=== PATIENT | male | born 1975 ===

== ENCOUNTER 2017-07-04 15:22 | Emergency (ER) | payer SELFPAY ==
[2017-07-04] MEDS ORDERED: NACL 0.9% 1000 ML 1,000 ML IV ONE (16:33)
[2017-07-04 17:22] LABS: Basophils % (Auto) 0.7 % (0.0-1.8); Eosinophils % (Auto) 0.6 % (0.0-4.3); Hematocrit 48.3 % (35.5-45.6); Hemoglobin 16.4 gm/dl (11.8-15.2); Mean Corpuscular HGB Conc 34 % (32-34); Mean Corpuscular Hemoglobin 29 pg (28-32); Mean Corpuscular Volume 87 fl (84-94); Platelet Count 225 K/mm3 (140-440); Red Blood Count 5.58 M/mm3 (3.65-5.03); White Blood Count 9.5 K/mm3 (4.5-11.0)
[2017-07-04 17:39] LABS: Alanine Aminotransferase 46 units/L (7-56); Albumin 4.4 g/dL (3.9-5); Albumin/Globulin Ratio 1.6 %; Alkaline Phosphatase 82 units/L (35-129); Anion Gap 16 mmol/L; BUN/Creatinine Ratio 10; Blood Urea Nitrogen 9 mg/dL (9-20); Calcium 9.2 mg/dL (8.4-10.2); Carbon Dioxide 28 mmol/L (22-30); Chloride 99.3 mmol/L (98-107); Glucose 88 mg/dL (75-100); Lipase 22 units/L (13-60); Potassium 3.4 mmol/L (3.6-5.0); Sodium 140 mmol/L (137-145); Total Protein 7.1 g/dL (6.3-8.2)
[2017-07-04 17:57] LABS: INR 1.03 (0.87-1.13)
[2017-07-04 17:58] LABS: Partial Thromboplastin Time 30.1 Sec. (24.2-36.6)
--- NOTE | 2017-07-04 23:00 | Emergency Department Report ---
HPI - General Chief Complaint: GI Bleed Time Seen by Provider: 07/04/17 22:26 - HPI HPI: Room 18 The patient is a 41-year-old male presented with a chief complaint of abdominal pain. The patient states for the past 2 weeks she has had intermittent left lower quadrant/left flank abdominal discomfort described as tightness in nature. The patient states yesterday he had one episode of dizziness that lasted about 1 minute while walking. Yesterday the patient states he noticed some blood in the stool as well as on the toilet. Patient describes the blood as bright red in nature. Patient states this happened every couple of years but he has never been evaluated for this Location: Abdomen Duration: [See above] Quality: Tightness Severity: Moderate Modifying factors: [see above] Context: [see above] Mode of transportation: Unknown ED Past Medical Hx - Past Medical History Previous Medical History?: Yes Additional medical history: Constipation - Surgical History Past Surgical History?: No - Family History Family history: no significant - Social History Smoking Status: Never Smoker Substance Use Type: None (denies illicit drug use) - Medications Home Medications: Home Medications Medication Instructions Recorded Confirmed Last Taken Type traMADol [Ultram] 50 mg PO Q6HR PRN #10 tablet 07/05/17 Unknown Rx ED Review of Systems ROS: Stated complaint: DIZZINESS/BLOOD IN STOOL Other details as noted in HPI Comment: All other systems reviewed and negative Constitutional: denies: chills, fever Eyes: denies: eye pain, eye discharge, vision change ENT: denies: ear pain, throat pain Respiratory: denies: cough, shortness of breath, wheezing Cardiovascular: denies: chest pain, palpitations Endocrine: no symptoms reported Gastrointestinal: abdominal pain, hematochezia Genitourinary: denies: urgency, dysuria Musculoskeletal: back pain. denies: joint swelling, arthralgia Skin: denies: rash, lesions Neurological: denies: headache, weakness, paresthesias Psychiatric: denies: anxiety, depression Hematological/Lymphatic: denies: easy bleeding, easy bruising Physical Exam - Physical Exam Vital Signs: Vital Signs 07/04/17 07/04/17 16:29 22:27 Temperature 98.8 F 98.1 F Pulse Rate 76 68 Respiratory 20 16 Rate Blood Pressure 149/95 Blood Pressure 148/90 [Left] O2 Sat by Pulse 97 96 Oximetry Physical Exam: GENERAL: The patient is well-developed well-nourished male lying on stretcher not appearing to be in acute distress. [] HEENT: Normocephalic. Atraumatic. Extraocular motions are intact. Patient has moist mucous membranes. NECK: Supple. Trachea midline CHEST/LUNGS: Clear to auscultation. There is no respiratory distress noted. HEART/CARDIOVASCULAR: Regular. There is no tachycardia. There is no gallop rub or murmur. ABDOMEN: Abdomen is soft, nontender. Patient has normal bowel sounds. There is no abdominal distention. SKIN: There is no rash. There is no edema. There is no diaphoresis. NEURO: The patient is awake, alert, and oriented. The patient is cooperative. The patient has normal speech MUSCULOSKELETAL: There is no CVA tenderness. There is no evidence of acute injury. RECTAL: Guaiac negative. No evidence of external or internal hemorrhoids ED Course Vital Signs 07/04/17 07/04/17 16:29 22:27 Temperature 98.8 F 98.1 F Pulse Rate 76 68 Respiratory 20 16 Rate Blood Pressure 149/95 Blood Pressure 148/90 [Left] O2 Sat by Pulse 97 96 Oximetry ED Medical Decision Making - Lab Data Result diagrams: 07/04/17 17:01 07/04/17 17:01 Laboratory Tests 07/04/17 07/04/17 07/04/17 17:01 17:01 17:01 WBC 9.5 RBC 5.58 H Hgb 16.4 H Hct 48.3 H MCV 87 MCH 29 MCHC 34 RDW 13.0 L Plt Count 225 Lymph % (Auto) 28.6 [place] % (Auto) 8.8 H Eos % (Auto) 0.6 Baso % (Auto) 0.7 Lymph # 2.7 [place] # 0.8 Eos # 0.1 Baso # 0.1 Seg Neutrophils % 61.3 Seg Neutrophils # 5.8 PT 14.0 INR 1.03 APTT 30.1 Sodium 140 Potassium 3.4 L Chloride 99.3 Carbon Dioxide 28 Anion Gap 16 BUN 9 Creatinine 0.9 Estimated GFR > 60 BUN/Creatinine Ratio 10 Glucose 88 Calcium 9.2 Total Bilirubin 0.90 AST 27 ALT 46 Alkaline Phosphatase 82 Total Protein 7.1 Albumin 4.4 Albumin/Globulin Ratio 1.6 Lipase 22 Blood Type Antibody Screen 07/04/17 17:01 WBC RBC Hgb Hct MCV MCH MCHC RDW Plt Count Lymph % (Auto) [place] % (Auto) Eos % (Auto) Baso % (Auto) Lymph # [place] # Eos # Baso # Seg Neutrophils % Seg Neutrophils # PT INR APTT Sodium Potassium Chloride Carbon Dioxide Anion Gap BUN Creatinine Estimated GFR BUN/Creatinine Ratio Glucose Calcium Total Bilirubin AST ALT Alkaline Phosphatase Total Protein Albumin Albumin/Globulin Ratio Lipase Blood Type O POSITIVE Antibody Screen Negative - EKG Data -: EKG Interpreted by Me EKG shows normal: sinus rhythm Rate: normal - EKG Data When compared to previous EKG there are: previous EKG unavailable Interpretation: normal EKG - Radiology Data Radiology results: report reviewed (CT abdomen and pelvis), image reviewed (CT abdomen and pelvis) CT abdomen and pelvis (read by radiologist)-no evidence acute disease in the abdomen or pelvis - Differential Diagnosis diverticulitis, renal colic, colonic mass, pyelonephritis, hemorrhoids Critical care attestation.: If time is entered above; I have spent that time in minutes in the direct care of this critically ill patient, excluding procedure time. ED Disposition Clinical Impression: Abdominal pain, Hematochezia Disposition: DC- TO HOME OR SELFCARE Is pt being admited?: No Does the pt Need Aspirin: No Condition: Stable Instructions: Acute Abdominal Pain (ED), Rectal Bleeding (ED) Additional Instructions: Return to the emergency department immediately should you develop worsening symptoms, fever, inability to tolerate food or liquid or any other concerns. Prescriptions: traMADol [Ultram] 50 mg PO Q6HR PRN #10 tablet PRN Reason: Pain Referrals: DONA NULL MD [Staff Physician] - 3-5 Days (Dr. Null is a primary physician. Please follow up with him to be established as a patient) KAMRAN ABRAHAM MD [Staff Physician] - [facility] (Dr. Abraham is a product evangelist. Please follow up with him for further evaluation of your rectal bleeding) Forms: Accompanied Note Time of Disposition: 00:20
[2017-07-04] MEDS ORDERED: NACL ONE (23:18)
--- NOTE | 2017-07-04 23:58 | Cat Scan Report ---
FINAL REPORT PROCEDURE: CT abdomen and pelvis with contrast. TECHNIQUE: Computerized axial tomography of the abdomen and pelvis was performed after the IV injection of iodinated nonionic contrast. HISTORY: Left lower quadrant abdominal pain, hematochezia. COMPARISON: No prior studies are available for comparison. FINDINGS: The lung bases are clear. There are no pleural effusions. The heart size is normal. The very top of the liver was not imaged. The liver appears normal as far as visualized. The gallbladder is present. The spleen and pancreas appear normal. The gallbladder is present. The adrenal glands are not enlarged. Both kidneys appear normal in size and configuration. The abdominal aorta has a normal caliber. There is no retroperitoneal adenopathy. A normal appendix is visible. The unopacified gastrointestinal tract is unremarkable. The bladder, seminal vesicles and prostate appear normal. The regional skeleton appears intact. There is probably an old fracture of the left superior pubic ramus. There is a small linear soft tissue calcification located lateral to the right hip joint. This is of uncertain etiology. It is of doubtful clinical significance. IMPRESSION: No evidence of acute disease in the abdomen or pelvis.
[2017-07-05 00:41] VITALS: BP 140/83
== END 2017-07-05 00:41 | disposition home or self-care (01) ==
LOC: ED 15:22
DX: R10.32 Left lower quadrant pain (principal); K92.1 Melena; R42 Dizziness and giddiness
CPT/HCPCS: 36415; 74177; 80053; 82271; 83690; 85025; 85610; 85730; 86850; 86900; 86901; 93005; 93010; 99284; Q9967

== ENCOUNTER 2017-07-06 12:59 | Emergency (ER) | payer OTHER ==
[2017-07-06 14:24] LABS: Hematocrit 45.9 % (35.5-45.6); Hemoglobin 16.2 gm/dl (11.8-15.2); Mean Corpuscular HGB Conc 35 % (32-34); Mean Corpuscular Hemoglobin 30 pg (28-32); Mean Corpuscular Volume 86 fl (84-94); Platelet Count 220 K/mm3 (140-440); Red Blood Count 5.32 M/mm3 (3.65-5.03); White Blood Count 7.6 K/mm3 (4.5-11.0)
[2017-07-06 18:04] VITALS: BP 152/95
== END 2017-07-06 22:01 | disposition left against medical advice (07) ==
LOC: ED 12:59
DX: R42 Dizziness and giddiness (principal); Z53.21 Procedure and treatment not carried out due to patient leaving prior to being seen by health care provider
CPT/HCPCS: 36415; 85027